=== PATIENT | female | born 1940 | race Caucasian/White ===

== ENCOUNTER → 2016-12-09 | Outpatient (CLI) | payer OTHER, MEDICARE | LOC: FIMAGING 09:06 | PROVIDERS: ATTEND Internal Medicine | DX: Z12.31 Encounter for screening mammogram for malignant neoplasm of breast (principal) | CPT/HCPCS: G0202 ==

== ENCOUNTER 2017-02-25 22:47 | Observation (INO) | payer OTHER, MEDICARE ==
[2017-02-25] MEDS ORDERED: methylPREDNISolone SOD SUCC 125 MG/2 ML VIAL IVP ONE (22:59)
--- NOTE | 2017-02-25 23:13 | EDPHY ---
H & P Stated Complaint: ALLERGIC RXN, SWOLLEN TOUNGE, ALTERED VOICE, RED HANDS. POSSIBLE TO MINOCIN Time Seen by Provider: 02/25/17 23:00 HPI/ROS: Chief Complaint: Allergic reaction, tongue swelling HPI: 76-year-old woman presenting with an acute allergic reaction which began approximately 1 hour ago. Patient has had tongue swelling and itching and redness on the palms of her hands. This occurred shortly after taking minocycline which she has taken for many years. Does have a history of similar episode secondary to shellfish years ago but does not believe she has been exposed to any shellfish recently. She does state that she had skin testing a year ago and was only positive at that time for almonds and sesame seeds. She has eaten almonds since then without any difficulty but she did state that there were almonds in the [place] she ate this evening. Denies any recent illness. Is not on any TERRIE inhibitors or other blood pressure medications at this time. Denies any fevers or chills. No nausea or vomiting. No difficulty breathing or throat swelling at this time. She does carry an EpiPen but did not use it tonight. ROS: 10 point Review of Systems is negative except as noted in the HPI. PMH: Eczema, remote history of hypertension Social History: No smoking, no alcohol, no recreational drug use Family History: non-contributory Physical Exam: Gen: Awake, Alert, No Distress HEENT: Nose: no rhinorrhea Eyes: PERRLA, EOMI Mouth: Moist mucosa there is anterior angioedema of the tongue but no obstruction of the airway, no uvular swelling or oral pharyngeal edema appreciated Neck: Supple, no JVD, no fullness, Chest: nontender, lungs clear to auscultation Heart: S1, S2 normal, no murmur Abd: Soft, non-tender, no guarding Back: no CVA tenderness, no midline tenderness Ext: no edema, non-tender Skin: Bilateral palmar mild erythema without edema Neuro: CN II-XII intact, Sensation grossly intact, Strength 5/5 in bilateral upper and lower extremities - Personal History Current Tetanus/Diphtheria Vaccine: Yes - Medical/Surgical History Hx Asthma: No Hx Chronic Respiratory Disease: No Hx Diabetes: No Hx Cardiac Disease: No Hx Renal Disease: No Hx Cirrhosis: No Hx Alcoholism: No Hx HIV/AIDS: No Hx Splenectomy or Spleen Trauma: No Other PMH: GERD, HTN - Social History Smoking Status: Former smoker Constitutional: Initial Vital Signs Temperature (C) 36.7 C 02/25/17 22:47 Heart Rate 111 H 02/25/17 22:47 Respiratory Rate 24 H 02/25/17 22:47 Blood Pressure 218/105 H 02/25/17 22:47 O2 Sat (%) 92 02/25/17 22:47 O2 Delivery Mode Room Air O2 (L/minute) 3 Allergies/Adverse Reactions: cobalt Allergy (Verified 02/25/17 22:58) gluten Allergy (Verified 02/25/17 22:58) shellfish derived Allergy (Verified 02/25/17 22:58) ANTIBIOTIC Allergy (Uncoded 02/25/17 22:58) Home Medications: Medication Instructions Recorded NK [No Known Home Meds] 02/25/17 Medical Decision Making ED Course/Re-evaluation: Patient given epinephrine 0.3 mL subcutaneous, Solu-Medrol 125 mg IV. She has already taken 50 mg of Benadryl orally at home. 2220 patient is feeling a bit worse. She has had sensation of postnasal drip going down the back of her throat with a little bit of swelling back there. Also developing rash on her face and the neck. Patient has been moved to room 1. 2350 patient is now feeling improved. Feels the sensation back her throat is improved. Tongue swelling is improved. She is less anxious. I have discussed with Dr. Gerard, hospitalist. Will admit to the Step-Down Unit for further observation. Critical Care Time: I spent a total of 30 minutes of critical care time in obtaining history, performing a physical exam, bedside monitoring of interventions, collecting and interpreting tests and discussion with consultants but not including time spent performing procedures. - Data Points Medications Given: Discontinued Medications Diphenhydramine HCl (Benadryl Injection) 25 mg IVP EDNOW ONE Stop: 02/25/17 23:21 Last Admin: 02/25/17 23:20 Dose: 25 mg Epinephrine HCl (Epinephrine) 0.3 mg IM EDNOW ONE Stop: 02/25/17 23:01 Last Admin: 02/25/17 23:00 Dose: 0.3 mg Methylprednisolone Sodium Succinate (Solu-Medrol) 125 mg IVP EDNOW ONE Stop: 02/25/17 23:00 Last Admin: 02/25/17 23:00 Dose: 125 mg Ranitidine HCl (Zantac) 50 mg IVP EDNOW ONE Stop: 02/25/17 23:27 Last Admin: 02/25/17 23:26 Dose: 50 mg Departure - Departure Disposition: [facility] Inpatient Acute Clinical Impression: Acute anaphylaxis Condition: Serious Referrals: Sylwia Stauffer MD [Primary Care Provider] - As per Instructions
[2017-02-25] MEDS ORDERED: RANITIDINE 50 MG/2 ML VIAL IVP ONE (23:26)
[2017-02-26 00:35] VITALS: TEMP 97.9; O2SAT 94
[2017-02-26] MEDS ORDERED: ONDANSETRON DISINTEGRATING 4 MG TAB PO PRN (01:08)
[2017-02-26] MEDS ORDERED: ACETAMINOPHEN 325 MG TAB PO PRN (01:08)
[2017-02-26] MEDS ORDERED: ONDANSETRON 4 MG/2 ML VIAL IVP PRN (01:08)
--- NOTE | 2017-02-26 02:10 | GHP ---
[f rep st] HISTORY AND PHYSICAL DATE OF ADMISSION: 02/25/2017 CHIEF COMPLAINT: Tongue and throat swelling. HISTORY OF PRESENT ILLNESS: The patient is a 76-year-old female with a history of shellfish and almond allergies who presents to the emergency department after having a dessert with almonds in it and subsequently developed lip and tongue swelling, along with hives and flushing. She originally tested positive for shellfish allergy in the 70s. However, repeat testing more recently was negative for shellfish allergy, but she did test positive for almond and sesame seed allergies. She believes she has had almonds in the past. She had a dessert after dinner tonight that had almonds in it, and shortly thereafter, she developed tingling in her hands. She then felt a rash developing. Her noted she had flushing on her chest and developed hives. She felt her lips and tongue swell and also felt her throat began to close. She does carry an EpiPen, though they were able to arrive in the emergency department quickly and she did not self administer epinephrine. Upon arrival to the emergency department, she was given 0.3 mg of IM epinephrine , 125 mg of Solu-Medrol, 50 mg of ranitidine, and 25 mg of Benadryl. At the time of my evaluation, her symptoms are dramatically improved. She states she is 85% better and hopes to go home this evening. At this time, she denies chest pain, shortness of breath. She feels very minimal swelling in her tongue. Her rash has completely resolved. She has no further tingling. She denies any difficulty breathing. Given her dramatic presentation with anaphylaxis, she is admitted to the hospital for further management. PAST MEDICAL HISTORY: 1. Eczema. 2. Distant history of hypertension. MEDICATIONS: Please see [facility] for complete updated outpatient medication list. ALLERGIES: [place], gluten, shellfish. FAMILY HISTORY: Reviewed and noncontributory. SOCIAL HISTORY: The patient is , lives independently with her . She denies tobacco alcohol or drug use. REVIEW OF SYSTEMS: A 10-point review of systems was performed and is negative, except as per HPI. OBJECTIVE: VITAL SIGNS: Upon arrival, her temperature was 36.7, blood pressure 218/105, heart rate 111, respiratory rate 24, she was 92% on room air. Current vital signs, temperature is 36.6, blood pressure 135/80, heart rate 88 , respiratory rate is 16, she is 94% on room air. GENERAL: The patient is awake, alert, oriented, in no acute distress. HEENT: Head is atraumatic, normocephalic. Pupils equal, round, react to light. Extraocular intact. Oropharynx is clear. Mucous membranes are moist. There is minimal tongue edema without other evidence of angioedema. There is no stridor. HEART: Regular rate and rhythm. LUNGS: Clear to auscultation bilaterally without wheezing. ABDOMEN: Soft, nondistended, nontender, with normoactive bowel sounds. EXTREMITIES: Without cyanosis, clubbing, or edema. NEUROLOGIC: Grossly nonfocal. SKIN: There is no evidence of hives or rashes. LABORATORY DATA: CBC and basic metabolic panel are pending. ASSESSMENT AND PLAN: The patient is a 76-year-old female with a history of shellfish and almond allergies, who is admitted to the hospital after an anaphylactic reaction to almonds. 1. Anaphylaxis. Patient presented with hypertension, shortness of breath, lip and tongue swelling, along with flushing and hives. She was treated with epinephrine, IV Solu-Medrol, ranitidine, and Benadryl. Her symptoms are significantly improved. Will continue Benadryl and Pepcid overnight. Repeat Epi prn and transition to oral Prednisone. It sounds like her trigger was almonds that she had in a dessert with a known almond allergy on prior allergy testing. She does carry an EpiPen with her. She will be observed in the step- down unit overnight. 2. Code status. Patient is full code. 3. Deep vein thrombosis prophylaxis. We will place SCDs. If she requires prolonged hospitalization, would consider Lovenox. 4. Disposition. Patient is admitted to observation status. /[id number]/MODL MTDD
[2017-02-26] MEDS: diphenhydrAMINE 25 MG CAP PO SCH ×2 (04:21→05:58)
[2017-02-26 04:40] LABS: % IMMATURE GRANULYOCYTES 0.4 % (0.0-1.1); ABSOLUTE IMMATURE GRANULOCYTES 0.05 10^3/uL (0.00-0.10); ADD DIFF? NO; ADD MORPH? NO; ADD SCAN? NO; ATYPICAL LYMPHOCYTE FLAG 0 (0-99); FRAGMENT RBC FLAG 0 (0-99); HEMATOCRIT 41.1 % (38.0-47.0); LEFT SHIFT FLG 0 (0-99); LIPEMIA HEMOLYSIS FLAG 90 (0-99); MEAN CELL HEMOGLOBIN 33.5 pg (27.9-34.1); MEAN CELL HEMOGLOBIN CONCENTR. 34.1 g/dL (32.4-36.7); MEAN CELL VOLUME 98.3 fL (81.5-99.8); PLATELET CLUMPS FLAG 10 (0-99); PLATELET COUNT 209 10^3/uL (150-400); RED BLOOD CELL COUNT 4.18 10^6/uL (4.18-5.33); RED CELL DISTRIBUTION WIDTH 12.9 % (11.5-15.2)
[2017-02-26 04:47] LABS: ANION GAP 14 mEq/L (8-16); CALCIUM 9.9 mg/dL (8.5-10.4); CARBON DIOXIDE 18 mEq/l (22-31); CHLORIDE 110 mEq/L (97-110); CREATININE 0.9 mg/dL (0.6-1.0); GLOMERULAR FILTRATION RATE > 60; GLUCOSE 160 mg/dL (70-100); POTASSIUM 4.3 mEq/L (3.5-5.2); SODIUM 142 mEq/L (134-144)
[2017-02-26 05:40] VITALS: BP 140/76; PULSE 92; RESP 18
[2017-02-26] MEDS ORDERED: FAMOTIDINE 20 MG TAB PO SCH (09:00)
[2017-02-26] MEDS ORDERED: predniSONE 20 MG TAB PO SCH (09:00)
[2017-02-26] MEDS ORDERED: IBUPROFEN 200 MG TAB PO PRN (09:11)
[2017-02-26] MEDS ORDERED: NON-FORMULARY NEW DRUG (Ranitidine Hcl [Zantac] 150 MG) PO PRN (09:11)
[2017-02-26] MEDS ORDERED: CETIRIZINE 5 MG/5 ML UDL PO SCH (09:15)
--- NOTE | 2017-02-26 09:15 | PDDCSUM ---
Discharge Summary Discharge Summary: DISCHARGE DIAGNOSES: -anaphylactic reaction, question due to nuts or other food ingested HOSPITAL COURSE SUMMARY: This patient with a prior history of anaphylaxis to physician notes came in with an anaphylactic reaction including or pharyngeal swelling, wheezing shortness of breath, and hives. She was treated with epinephrine steroids and antihistamines and had an excellent response. She is now quite stable and not showing signs of significant allergic symptomatology or exam findings presently. She is stable for discharge to home. She does understand that she should avoid nuts and fish which is been tested for with allergies. However is uncertain what she ate last night that triggered this and she will investigate the food she ate more closely as she was at a friend's house. She also revisit with Dr. Meredith Velasco her change house attendant. In addition she has EpiPen at home which she did not use, and also it is notable that despite the EpiPen still having good color it was in 2013. She is advised that she should use her EpiPen when she is having such a reaction and still seek help, she is advised that she should have a new prescription filled and I have sent a prescription to her pharmacy electronically PENDING TEST RESULTS: None MEDICATION CHANGES: None FOLLOW-UP PLAN: With Dr. Meredith Velasco Greater than 35 minutes bedside and care coordination time today
[2017-02-26] MEDS ORDERED: CETIRIZINE 10 MG TAB PO SCH (09:30)
[2017-02-27] MEDS ORDERED: ASPIRIN 81 MG CHEWABLE TAB PO SCH (09:00)
[2017-02-27] MEDS ORDERED: MULTIVITAMINS 1 EACH TAB PO SCH (09:00)
[2017-02-27] MEDS ORDERED: CHOLECALCIFEROL VIT D3 1,000 UNITS TAB PO SCH (09:00)
== END 2017-02-26 09:47 | disposition home or self-care (01) ==
LOC: F2N 02-26 00:17
PROVIDERS: ADMIT Hospitalist; ATTEND Internal Medicine
DX: T78.05XA Anaphylactic reaction due to tree nuts and seeds, initial encounter (principal); X58.XXXA Exposure to other specified factors, initial encounter; Y92.011 Dining room of single-family (private) house as the place of occurrence of the external cause; Y93.89 Activity, other specified; Y99.8 Other external cause status; L30.9 Dermatitis, unspecified
CPT/HCPCS: G0378 ×2; 96374

== ENCOUNTER → 2018-01-05 | Outpatient (CLI) | payer OTHER, MEDICARE | LOC: FIMAGING 09:22 | PROVIDERS: ATTEND Internal Medicine | DX: Z12.31 Encounter for screening mammogram for malignant neoplasm of breast (principal) ==

== ENCOUNTER → 2019-01-12 | Outpatient (CLI) | payer OTHER, MEDICARE | LOC: FIMAGING 15:32 ==